=== PATIENT | male | born 1985 | race Caucasian/White ===

== ENCOUNTER 2016-07-26 21:33 | Emergency (ER) | payer OTHER ==
[~2016-07-26] VITALS: Ht 170.2 cm; Wt 68.0 kg
[2016-07-26 21:36] VITALS: O2SAT 92
[2016-07-26 21:37] VITALS: TEMP 36.9; Ht 170.2 cm; Wt 68.0 kg
[2016-07-26] MEDS ORDERED: SODIUM CHLORIDE 0.9% 1000ML 1,000 ML IV STA ×2 (21:57)
[2016-07-26] MEDS ORDERED: NALOXONE HCL 0.4 MG/1 ML VIAL/CARP ONE (22:14)
[2016-07-26] MEDS ORDERED: NURSING VERBAL MED ORDER ONE (22:30)
[2016-07-26] MEDS ORDERED: OPTIRAY 320 IV PRN (22:30)
[2016-07-26 23:27] LABS: HEMATOCRIT 43.7 % (42-52); MEAN CELL VOLUME 85.4 fL (80-100); MEAN CORPUSCULAR HEMOGLOBIN 28.9 pg (25-34); MEAN CORPUSCULAR HGB CONC 33.9 g/dl (32-36); PLATELET COUNT 266 K/uL (130-400); RED BLOOD COUNT 5.12 M/uL (4.7-6.1)
[2016-07-26 23:52] LABS: BUN/CREATININE RATIO 9.7 (10-20); CALCIUM 8.3 mg/dl (8.5-10.1); CREATININE 1.4 mg/dl (0.60-1.40); MAGNESIUM 3.3 mg/dl (1.8-2.4); POTASSIUM 3.9 mmol/L (3.5-5.1)
[2016-07-27 00:01] LABS: BASO % 0.1 %; BASO ABS # 0.02 K/uL (0-0.2); COMPLETE YES; IG% 0.7 %; LYMPH ABS # 1.59 K/uL (1.2-3.4); MONO % 4.6 %; NEUT % 83.6 %
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
[2016-07-27] MEDS ORDERED: SODIUM CHLORIDE 0.9% 1000ML 1,000 ML IV STA (02:09)
[2016-07-27] MEDS ORDERED: LORAZEPAM 2 MG/ML 1 ML VIAL IV STA (02:44)
[2016-07-27] MEDS ORDERED: NALOXONE HCL 0.4 MG/1 ML VIAL/CARP ONE (03:26)
[2016-07-27 03:47] VITALS: BP 118/75; PULSE 101; O2SAT 92
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
== END 2016-07-27 03:45 | disposition short-term general hospital (02) ==
LOC: C.EDC 21:35
DX: S06.370A Contusion, laceration, and hemorrhage of cerebellum without loss of consciousness, initial encounter (principal); S27.329A Contusion of lung, unspecified, initial encounter; T40.1X1A Poisoning by heroin, accidental (unintentional), initial encounter; S37.009A Unspecified injury of unspecified kidney, initial encounter; V48.1XXA Car passenger injured in noncollision transport accident in nontraffic accident, initial encounter; F17.200 Nicotine dependence, unspecified, uncomplicated